=== PATIENT | female | born 1990 | race Caucasian/White ===

== ENCOUNTER 2016-05-25 20:44 | Emergency (ER) | payer SELFPAY ==
[2016-05-25 20:50] VITALS: BP 123/80; PULSE 77; TEMP 98; BMI 55.5
--- NOTE | 2016-05-25 21:00 | EDPRACDOC ---
- General Information Chief Complaint: Flu-Like Symptoms Stated Complaint: FLU LIKE SYMPTOMS Time Seen by Provider: 05/25/16 20:52 Information Source: Patient Home Medications: Home Medications Ibuprofen 600 mg PO TID #20 tablet 05/25/16 Pseudoephedrine [Sudafed] 240 mg PO DAILY #10 days 05/25/16 Allergies/Adverse Reactions: Allergies Allergy/AdvReac Type Severity Reaction Status Date / Time No Known Allergies Allergy Verified 05/25/16 20:50 - History of Present Illness Onset: 2 DAYS HPI: PT PRESENTS TODAY WITH URI SYMPTOMS X 4 DAYS. STATES NASAL CONGESTION, COUGH, LOST VOICE, SORE THROAT. NO APPARENT DISTRESS. NO PMH/MEDS/SBI. Current Symptoms: Reports: Cough, Nasal Symptoms, Sore Throat Shortness of Breath: None Cough: Reports: Non-productive Rhinorrhea: Reports: Clear Ear Symptoms: Reports: None Fever Severity/Quality: Reports: no fever Oral Intake: Normal Urinary Output: Normal Relevant History of: None Associated Signs & Symptoms:: Reports: Cough, Nasal Symptoms, Sore Throat ED Past Medical History - History Reviewed Yes Nurses notes reviewed and agree except as marked - Patient Medical History Psychological History: Denies: Depression Systemic History: Denies: Cancer, Anemia, Lupus Surgical History: Reports: Cholecystectomy. Denies: Hysterectomy - Family Medical History Reports: Hypertension (mgf), Diabetes (mgm), Cancer, Stroke, Cardiac Disorders - Social Medical History Smoking Status: Never smoker EDM Review of Systems - Review of Systems ROS Negative Except as Marked: Yes All systems reviewed and were negative except as marked Constitutional: Fatigue Eyes: No Symptoms Reported Ears: No Symptoms Reported Throat: Pain, Hoarseness Nose: Congestion Respiratory: Cough Cardiovascular: No Symptoms Reported Gastrointestinal: No Symptoms Reported Genitourinary: No Symptoms Reported Neurological: No Symptoms Reported Musculoskeletal: No Symptoms Reported Integumentary: No Symptoms Reported - Physical Exam Constitutional: Alert (Awake), No apparent distress Oriented to: Time, Person, Place Last recorded Vital Signs: Last Vital Signs Temp 98 F 05/25/16 20:46 Pulse 77 05/25/16 20:46 Resp 20 05/25/16 20:46 BP 123/80 05/25/16 20:46 Pulse Ox 97 05/25/16 20:46 Oxygen Pulse Oxygen Saturation 97 O2 Device Oxygen Flow Rate Fraction of Inspired Oxygen ( FIO2) - HEENT Head: Normal Eye Exam: Normal Oropharynx: Red Tympanic Membrane: Normal ENT EAC: Normal Nose: Congestion Neck: Normal, Denies Pain, Midline - Respiratory/Cardiovascular Respiratory: Normal - CTA Cardiovascular: Normal - GI Palpation: Normal Tenderness: Non tender - Musculoskeletal Back: Normal Extremities: Normal - Integumentary Skin: Normal Lymphatics: Normal - Neurologic Cerebellar: Normal Mood Description: Normal Thought: Coherent Perception: Normal Decision Time to Discharge: 20:58 - Departure Disposition: Home Condition: Good Final Diagnosis: Acute viral pharyngitis Instructions: Laryngitis (ED) Education/Counseling Given To: Patient Education/Counseling Given Regarding: Diagnosis, Treatment, Follow Up Referrals: Bibi Holliday [employer] [Primary Care Provider] - One Week Prescriptions: New Ibuprofen 600 mg PO TID #20 tablet Pseudoephedrine [Sudafed] 240 mg PO DAILY #10 days Additional Instructions: WARM LIQUIDS AND LOTS OF WATER/REST. FOLLOW UP WITH PCP IN 2-3 DAYS IF NEEDED.
== END 2016-05-25 21:08 | disposition home or self-care (01) ==
LOC: EDMC 20:44
DX: J02.9 Acute pharyngitis, unspecified (principal)
CPT/HCPCS: 99282

== ENCOUNTER 2016-05-26 15:28 | Emergency (ER) | payer SELFPAY ==
[2016-05-26 15:28] VITALS: BMI 55.5
[2016-05-26 15:37] VITALS: BP 162/87; PULSE 80; TEMP 97.6
--- NOTE | 2016-05-26 16:25 | DIRPT ---
CLINICAL DATA: Cough and congestion for 1 week EXAM: CHEST 2 VIEW COMPARISON: None. FINDINGS: Normal cardiac silhouette. No effusion, infiltrate or pneumothorax. No acute osseous abnormality. IMPRESSION: No acute cardiopulmonary process. Electronically Signed By: Teddy Cox M.D. On: 05/26/2016 16:23
--- NOTE | 2016-05-26 16:35 | EDPRACDOC ---
- General Information Chief Complaint: Flu-Like Symptoms Stated Complaint: PRODUCTIVE COUGH FEVER Time Seen by Provider: 05/26/16 15:36 Information Source: Patient Mode Of Arrival: Car Home Medications: Home Medications Ibuprofen 600 mg PO TID #20 tablet 05/25/16 Pseudoephedrine [Sudafed] 240 mg PO DAILY #10 days 05/25/16 Acetaminophen with Codeine [TYLENOL WITH CODEINE; [employer] with Codeine] 5 ml PO Q4-6H PRN #120 ml 05/26/16 Azithromycin [Zithromax] 250 mg PO DAILY #6 tablet 05/26/16 Prednisone [Deltasone, Orasone] 2 tabs PO DAILY #20 tab 05/26/16 Allergies/Adverse Reactions: Allergies Allergy/AdvReac Type Severity Reaction Status Date / Time No Known Allergies Allergy Verified 05/26/16 15:42 - History of Present Illness Onset: several days HPI: PT PRESENTS TODAY WITH INCREASED CHEST WALL PAIN AND HEMOPTYSIS THAT OCCURRED EARLIER. I SEEN PT YESTERDAY FOR LARYNGITIS AND GAVE IBUPROFEN/PSEUDOPHEDE. DENIES FEVER, SHOB, ABD PAIN, N/V/D. NO OTHER PMH/MEDS. NO DISTRESS. Current Symptoms: Reports: Cough, Sore Throat Cough: Reports: Productive, Bloody Rhinorrhea: Reports: Clear Ear Symptoms: Reports: None Fever Severity/Quality: Reports: no fever Oral Intake: Normal Urinary Output: Normal Relevant History of: None Associated Signs & Symptoms:: Reports: Cough, Nasal Symptoms ED Past Medical History - History Reviewed Yes Nurses notes reviewed and agree except as marked - Patient Medical History Psychological History: Denies: Depression Systemic History: Denies: Cancer, Anemia, Lupus Surgical History: Reports: Cholecystectomy. Denies: Hysterectomy - Family Medical History Reports: Hypertension (mgf), Diabetes (mgm), Cancer, Stroke, Cardiac Disorders - Social Medical History Smoking Status: Never smoker EDM Review of Systems - Review of Systems ROS Negative Except as Marked: Yes All systems reviewed and were negative except as marked Constitutional: No Symptoms Reported Eyes: No Symptoms Reported Ears: No Symptoms Reported Throat: Pain Nose: Congestion Respiratory: Cough, Hemoptysis Cardiovascular: No Symptoms Reported Gastrointestinal: No Symptoms Reported Neurological: No Symptoms Reported Musculoskeletal: Chestwall Integumentary: No Symptoms Reported - Physical Exam Constitutional: Alert (Awake), No apparent distress Oriented to: Time, Person, Place Last recorded Vital Signs: Last Vital Signs Temp 97.6 F 05/26/16 15:37 Pulse 80 05/26/16 15:37 Resp 20 05/26/16 15:37 BP 162/87 05/26/16 15:37 Pulse Ox 99 05/26/16 15:37 Oxygen Pulse Oxygen Saturation 99 O2 Device Oxygen Flow Rate Fraction of Inspired Oxygen ( FIO2) - HEENT Head: Normal Eye Exam: Normal Oropharynx: Normal Tympanic Membrane: Normal ENT EAC: Normal Nose: No Symptoms Reported Neck: Normal, Denies Pain, Midline - Respiratory/Cardiovascular Respiratory: Normal - CTA Cardiovascular: Normal - GI Palpation: Normal Tenderness: Non tender - Musculoskeletal Back: Normal Extremities: Normal - Integumentary Skin: Normal Lymphatics: Normal - Neurologic Cerebellar: Normal Mood Description: Normal Thought: Coherent Perception: Normal - Results Urine Test Neg (NEGATIVE) 05/26/16 15:48 Lab Results 05/26/16 15:48 Urine Test Neg Decision Time to Discharge: 16:34 - Departure Disposition: Home Condition: Good Final Diagnosis: Acute bronchitis Instructions: Acute Bronchitis (ED) Education/Counseling Given To: Patient Education/Counseling Given Regarding: Diagnosis, Treatment, Follow Up Referrals: Bibi Holliday, [employer] WORKER [Primary Care Provider] - One Week Prescriptions: New Acetaminophen with Codeine [TYLENOL WITH CODEINE; [employer] with Codeine] 5 ml PO Q4-6H PRN #120 ml PRN Reason: Pain Azithromycin [Zithromax] 250 mg PO DAILY #6 tablet Prednisone [Deltasone, Orasone] 2 tabs PO DAILY #20 tab No Action Ibuprofen 600 mg PO TID #20 tablet Pseudoephedrine [Sudafed] 240 mg PO DAILY #10 days Additional Instructions: REST AND PLENTY OF FLUIDS. CONTINUE OTHER MEDICATIONS FROM YESTERDAY. FOLLOW UP WITH PCP IN 2-3 DAYS IF NEEDED.
== END 2016-05-26 16:42 | disposition home or self-care (01) ==
LOC: EDMC 15:28
DX: J20.9 Acute bronchitis, unspecified (principal)
CPT/HCPCS: 71020; 81025; 99282